=== PATIENT | female | born 1930 | race Caucasian/White ===

== ENCOUNTER 2018-05-23 22:12 | Inpatient (IN) | payer MEDICARE, BC ==
[~2018-05-23] VITALS: Ht 154.9 cm; Wt 58.5 kg
[2018-05-23 23:23] LABS: BASOPHILS % (AUTO) 0.5 % (0.0-2.0); EOSINOPHILS % (AUTO) 0.5 % (0.0-3.0); HEMATOCRIT 50.3 % (37.0-47.0); HEMOGLOBIN 17.2 G/DL (12.0-16.0); LYMPHOCYTES % (AUTO) 7.8 % (20.0-45.0); MEAN CORPUSCULAR VOLUME 85 FL (80-99); MONOCYTES % (AUTO) 7.1 % (1.0-10.0); NEUTROPHILS % (AUTO) 84.1 % (45.0-75.0); PLATELET COUNT 303 K/UL (150-450); RED BLOOD COUNT 5.92 M/UL (4.20-5.40); RED CELL DISTRIBUTION WIDTH 12.9 % (11.6-14.8); WHITE BLOOD COUNT 13.8 K/UL (4.8-10.8)
[2018-05-23 23:24] LABS: APPEARANCE,URINE CLOUDY; BILIRUBIN, URINE NEGATIVE (NEGATIVE); GLUCOSE, URINE (UA) NEGATIVE (NEGATIVE); KETONES,URINE NEGATIVE (NEGATIVE); LEUKOCYTE ESTERASE ,URINE 1+ (NEGATIVE); NITRITE,URINE NEGATIVE (NEGATIVE); PH,URINE 5 (4.5-8.0); PROTEIN,URINE 1+ (NEGATIVE); UROBILINOGEN,URINE NORMAL MG/DL (0.0-1.0)
[2018-05-23 23:26] LABS: COLOR,URINE YELLOW
[2018-05-23 23:37] LABS: ANION GAP 12 mmol/L (5-15); BLOOD UREA NITROGEN 54 mg/dL (7-18); CALCIUM 11.8 MG/DL (8.5-10.1); CARBON DIOXIDE 22 MMOL/L (21-32); CHLORIDE 98 MMOL/L (98-107); CREATININE 2.6 MG/DL (0.55-1.30); POTASSIUM 4.7 MMOL/L (3.5-5.1); SODIUM 132 MMOL/L (136-145)
[2018-05-23 23:42] LABS: ALANINE AMINOTRANSFERASE 39 U/L (12-78); ALBUMIN 3.4 G/DL (3.4-5.0); ALBUMIN/GLOBULIN RATIO 0.8 (1.0-2.7); ALKALINE PHOSPHATASE 94 U/L (46-116); ASPARTATE AMINO TRANSFERASE 43 U/L (15-37); BILIRUBIN,TOTAL 0.5 MG/DL (0.2-1.0); INR 1.1 (0.9-1.1)
[2018-05-24] VITALS (7 sets, daily range): BP systolic 106–141; BP diastolic 59–90
--- NOTE | 2018-05-24 00:31 | Emergency Room Report ---
History of Present Illness General Chief Complaint: Altered Mental Status Source: Family Member, Medical Record, Caregiver Present Illness HPI This is an 87-year-old female with a history of bipolar and hypertension. She was recently discharged from [facility] with L1 compression fracture and UTI. Patient was sent here for altered mental status. Per EMS assisted said that she became unresponsive for about 30 minutes. On arrival she back to baseline. At baseline she is confused and mumbling. I confirm this with the caregiver and her on the phone. Unknown nausea or vomiting. No fever chills but no focal deficit. Allergies: Coded Allergies: No Known Allergies (Unverified , 05/23/18) Patient History Past Medical History: see triage record, old chart reviewed, psych hx Past Surgical History: other Pertinent Family History: none Social History: Denies: smoking Now: No Immunizations: other Reviewed Nursing Documentation: PMH: Agreed; PSxH: Agreed Nursing Documentation-PMH Past Medical History: No History, Except For Hx Hypertension: Yes Hx Gastrointestinal Problems: Yes - GERD; pressure ulcers History Of Psychiatric Problem: Yes - Depression, anxiety, psychosis, bipolar Review of Systems Eye: Denies: eye pain, blurred vision ENT: Denies: ear pain, nose congestion, throat swelling Respiratory: Denies: cough, shortness of breath Cardiovascular: Denies: chest pain, palpitations Gastrointestinal: Denies: abdominal pain, diarrhea, nausea, vomiting Musculoskeletal: Denies: back pain, joint pain Skin: Denies: rash Neurological: Denies: headache, numbness Endocrine: Denies: increased thirst, increased urine Hematologic/Lymphatic: Denies: easy bruising All Other Systems: negative except mentioned in HPI Physical Exam Vital Signs Date Time Temp Pulse Resp B/P (MAP) Pulse Ox O2 Delivery O2 Flow Rate FiO2 05/23/18 22:07 98.0 88 16 140/92 96 Room Air 98.1 vitals normal Sp02 EP Interpretation: reviewed, normal General Appearance: well appearing, no apparent distress, alert Head: normocephalic, atraumatic Eyes: bilateral eye PERRL, bilateral eye EOMI ENT: hearing grossly normal, normal pharynx Neck: full range of motion, supple, no meningismus Respiratory: chest non-tender, lungs clear, normal breath sounds Cardiovascular #1: regular rate, rhythm, no murmur Gastrointestinal: normal bowel sounds, non tender, no mass, no organomegaly, no bruit, non-distended Musculoskeletal: back normal, normal range of motion Neurologic: alert, grossly normal Psychiatric: mood/affect normal Skin: warm/dry Medical Decision Making Diagnostic Impression: Primary Impression: Altered mental status Qualified Codes: R41.82 - Altered mental status, unspecified Additional Impressions: TIA (transient ischemic attack) ARF (acute renal failure) Qualified Codes: N17.9 - Acute kidney failure, unspecified ER Course Patient with an altered mental status. This may be a TIA. No evidence of CVA. No evidence of focal deficit right now. No criteria for TPA. I did give her aspirin here. CT scan is negative. Infection lama improved. No evidence of UTI. She is dehydrated however with the when and creatinine elevated. It was normal on discharge from [facility]. Her troponin is also elevated. She had elevated troponin it was trending downward for discharge paperwork. Because her primary care doctor is Dr. Medel, I contacted Dr. Akbar. He was accepted the patient on his service. Lab Results Impression labs with elevated BUN/creat EKG Diagnostic Results Rate: normal Rhythm: NSR ST Segments: other - NSST changes ASA given to the pt in ED: Yes Rhythm Strip Diag. Results Rhythm Strip Time: 00:30 EP Interpretation: yes Rate: 84 Rhythm: NSR, no PVC's, no ectopy CT/MRI/US Diagnostic Results CT/MRI/US Diagnostic Results : Imaging Test Ordered: CT head Impression no acute process per radiologist Last Vital Signs Date Time Temp Pulse Resp B/P (MAP) Pulse Ox O2 Delivery O2 Flow Rate FiO2 05/23/18 22:07 98.0 88 16 140/92 96 Room Air 98.1 Status: improved Disposition: ADMITTED INPATIENT Condition: Serious Referrals: JUANITO MEDEL (PCP) JERRI ROGERS M.D. May 24, 2018 00:31
[2018-05-24] MEDS ORDERED: LAMOTRIGINE25 M1 PO (01:28)
[2018-05-24] MEDS ORDERED: METOPROLOL SUCC25 MG ORAL (01:28)
[2018-05-24] MEDS ORDERED: ATORVASTATIN CA40 MG ORAL (01:28)
[2018-05-24] MEDS ORDERED: RESTASIS1 EACH BOTH EYES (01:28)
[2018-05-24] MEDS ORDERED: CYMBALTA60 MG ORAL (01:28)
[2018-05-24] MEDS ORDERED: QUETIAPINE FUMA25 MG ORAL (01:28)
[2018-05-24] MEDS ORDERED: AMLODIPINE BESY10 MG ORAL (01:28)
[2018-05-24] MEDS ORDERED: GABAPENTIN100 MG ORAL (01:28)
[2018-05-24] MEDS ORDERED: NORCO 5-325 TA1 EACH ORAL (01:28)
[2018-05-24] MEDS ORDERED: TRIAMTERENE-HC1 EAC5 ORAL (01:28)
[2018-05-24] MEDS ORDERED: SENNA8.6 M2 PO (01:28)
[2018-05-24] MEDS ORDERED: WELLBUTRIN XL150 M3 ORAL (01:28)
[2018-05-24] MEDS ORDERED: BUSPIRONE HCL10 M1 ORAL (01:28)
[2018-05-24] MEDS ORDERED: ACETAMINOPHEN325 M1 ORAL (01:28)
[2018-05-24] MEDS ORDERED: FLONASE ALLERG9.9 ML NS (01:28)
[2018-05-24] MEDS ORDERED: ASPIRIN-LOW81 MG ORAL (01:28)
[2018-05-24] MEDS ORDERED: LEVOTHYROXINE75 MCG ORAL (01:28)
[2018-05-24 07:08] LABS: BASOPHILS % (AUTO) 0.4 % (0.0-2.0); EOSINOPHILS % (AUTO) 0.4 % (0.0-3.0); HEMOGLOBIN 13.5 G/DL (12.0-16.0); LYMPHOCYTES % (AUTO) 11.2 % (20.0-45.0); MEAN CORPUSCULAR VOLUME 85 FL (80-99); MONOCYTES % (AUTO) 7.9 % (1.0-10.0); PLATELET COUNT 238 K/UL (150-450); RED BLOOD COUNT 4.72 M/UL (4.20-5.40); WHITE BLOOD COUNT 10.3 K/UL (4.8-10.8)
[2018-05-24 07:34] LABS: ALANINE AMINOTRANSFERASE 32 U/L (12-78); ALBUMIN 2.6 G/DL (3.4-5.0); ALBUMIN/GLOBULIN RATIO 0.8 (1.0-2.7); ALKALINE PHOSPHATASE 69 U/L (46-116); ANION GAP 10 mmol/L (5-15); ASPARTATE AMINO TRANSFERASE 39 U/L (15-37); BILIRUBIN,TOTAL 0.4 MG/DL (0.2-1.0); CALCIUM 9.5 MG/DL (8.5-10.1); CARBON DIOXIDE 22 MMOL/L (21-32); CHLORIDE 105 MMOL/L (98-107); CHOLESTEROL 118 MG/DL (< 200); CREATININE 2.1 MG/DL (0.55-1.30); HDL CHOLESTEROL 37 MG/DL (40-60); POTASSIUM 4.2 MMOL/L (3.5-5.1); SODIUM 137 MMOL/L (136-145); TRIGLYCERIDES 102 MG/DL (30-150)
[2018-05-24 07:44] LABS: BLOOD UREA NITROGEN 48 mg/dL (7-18)
[2018-05-24] MEDS: BuPROPion XL 150mg tab ORAL SCH ×2 (08:35→17:40)
[2018-05-24] MEDS: DULoxetine 30mg cap ORAL SCH (08:35)
[2018-05-24] MEDS: Metoprolol Succinate XL 25mg tab ORAL SCH (08:37)
[2018-05-24] MEDS: BusPIRone 5mg Tab ORAL SCH ×3 (09:39→17:40)
--- NOTE | 2018-05-24 11:09 | Diagnostic Imaging Report ---
Indication: Altered mental status Technique: spiral acquisitions obtained through the brain. Angled axial and coronal 5 x 5 mm slices were reconstructed. No IV contrast utilized. Radiation dose was minimized using automated exposure control Total dose length product 1305 mGycm. CTDIvol(s) 70 mGy Comparison: none FINDINGS: No acute hemorrhage or edema. No mass effect or midline shift. There is age-related enlargement of the ventricles and extra axial CSF spaces. There is periventricular deep white matter ischemic change. Normal carvajal-white differentiation. There is evidence of prior bilateral cataract surgery. Visualized sinuses are unremarkable. Intact calvarium. IMPRESSION: Chronic and age-related changes. Negative for acute intracranial bleed or mass effect This agrees with the preliminary interpretation provided overnight by [facility] teleradiology service. The CT scanner at [facility] is accredited by the [employer] and the scans are performed using protocols designed to limit radiation exposure to as low as reasonably achievable to attain images of sufficient resolution adequate for diagnostic evaluation
--- NOTE | 2018-05-24 13:05 | History & Physical ---
History and Physical History & Physicial dict TIA dehydration w CLAUDETTE dementia Kirk Akbar MD May 24, 2018 13:05
[2018-05-24] MEDS: Atorvastatin 20mg tab ORAL SCH (21:09)
--- NOTE | 2018-05-24 21:15 | History and Physical Report ---
DATE OF ADMISSION: 05/24/2018 CHIEF COMPLAINT: Confusion. HISTORY OF PRESENT ILLNESS: The patient is an 87-year-old, who was [facility] her [facility] because of about 30 minutes where she was unresponsive. Apparently, she had been responding normally, but stopped talking for a while. When the paramedics brought her, she was responsive once again and seems to be back to her baseline, which is confused. She was admitted for possible TIA and evidence of dehydration was noted on laboratory testing. PAST MEDICAL HISTORY: Hypertension, hyperlipidemia, hypothyroidism, bipolar disorder, depression, and chronic back pain. MEDICATIONS: Eye drops, Cymbalta, Seroquel, Norvasc, aspirin, Lipitor, Wellbutrin, BuSpar, Flonase, Neurontin, Lamictal, Synthroid, metoprolol, Senokot, and Dyazide. ALLERGIES: None. REVIEW OF SYSTEMS: She is a bit confused and cannot really respond. She believes she is able to walk, but apparently physical therapy states that she is not. There is some history of anxiety and psychosis as well as some pressure ulcers and acid reflux. PHYSICAL EXAMINATION: GENERAL: The patient is alert, sitting up in a chair but is confused and disoriented. She is well developed and seems well nourished. VITAL SIGNS: Stable. HEENT: Head is normocephalic. NECK: No jugular venous distention. CHEST: Clear. CARDIAC: Rhythm is regular. ABDOMEN: Soft and nontender. EXTREMITIES: Have no edema. She is able to move all extremities. NEUROLOGIC: Cranial nerves appear to be intact. LABORATORY AND DIAGNOSTIC DATA: Laboratory studies show an elevated hemoglobin of 17.2 and white count was 13,800. This morning, white count is down to 10,300, hemoglobin 13.5, and platelets are normal. The BUN was 54 and creatinine 2.6 on arrival, today it is down with hydration and withholding diuretics. Her baseline showed BUN 21, creatinine of 0.9 four days ago. The troponin is slightly elevated. The albumin is low at 2.6. TSH is normal. Cholesterol is 118. Urinalysis shows no white cells or red cells of significance. A CT of the brain was negative. IMPRESSION: 1. Transient ischemic attack. 2. Dehydration. 3. Dementia. 4. Hypertension. 5. Hyperlipidemia. 6. History of psychosis and bipolar disorder. PLAN: The patient will continue hydration and we will withhold diuretics. There is mild elevation in troponin. Cardiology will be called. She will be evaluated by Physical Therapy. An echocardiogram and carotid duplex will be obtained to evaluate for possible TIA. Kirk Akbar M.D. DR: Lawson JOB#: [id number] CC: Kirk Akbar M.D.; Fax#: [phone] [facility]
[2018-05-25] VITALS (7 sets, daily range): BP systolic 123–152; BP diastolic 61–80
--- NOTE | 2018-05-25 02:00 | Consultation ---
DATE OF CONSULTATION: 05/24/2018 CARDIOLOGY CONSULTATION CONSULTING PHYSICIAN: Vaibhav Faulkner M.D. REQUESTING PHYSICIAN: Kirk Akbar M.D. REASON FOR CONSULTATION: Elevated troponin level. HISTORY OF PRESENT ILLNESS: This 87-year-old female residing at a [facility] facility, was noted to be unresponsive for about 30 minutes. She stopped talking after being noted to be functioning at her baseline. Earlier the patient was found by paramedics, however, to be at baseline upon their arrival. She does have confusion however this is felt to be her baseline. Of concern is abnormal laboratory studies and elevated troponin level as well as possible transient ischemic attack. PAST MEDICAL HISTORY: Hypertension, hyperlipidemia, hypothyroidism, depression, dementia with psychosis, degenerative disk disease with chronic pain, constipation, glaucoma. ALLERGIES: None. FAMILY HISTORY: Noncontributory. SOCIAL HISTORY: No record of smoking, alcohol, or substance abuse. MEDICATIONS: Prior to admission reviewed and reconciled. REVIEW OF SYSTEMS: There is no known history of myocardial infarction, irregular heartbeat, or congestive heart failure. PHYSICAL EXAMINATION: VITAL SIGNS: Blood pressure 138/73, pulse 91, respiratory rate 20, afebrile. HEENT: Temporal wasting. Pale conjunctivae. Oropharynx clear. NECK: Supple. Jugular venous pressure normal. LUNGS: Clear. CARDIAC: Regular rhythm and rate. Normal S1, and S2. There is a fourth heart sound. There is a 1/6 systolic murmur at apex. ABDOMEN: Soft and nontender. EXTREMITIES: No clubbing, cyanosis. No edema. NEUROLOGIC: The patient is responsive. Speech is intact. LABORATORY AND DIAGNOSTIC DATA: Albumin 2.6. CT scan of the brain, no acute process. White count is 18.8, hemoglobin 17.2, BUN 54 and creatinine 2.6. Troponin 0.118. Thyroid function normal. IMPRESSION: 1. Transient ischemic attack. 2. Dehydration. 3. . 4. Hypovolemia. 5. Secondary polycythemia. 6. Elevated troponin level likely due to skeletal muscle breakdown, but cannot exclude acute myocardial ischemia. PLAN: 1. Hydration with IV fluids. 2. Hold diuretics. 3. Titrate antihypertensives. 4. Serial troponins. 5. Antiplatelet therapy. 6. Repeat EKG. 7. Maintain beta-blockade. 8. Check CK and CK-MB levels. Vaibhav Rani Faulkner DR: Dima JOB#: [id number] CC:
[2018-05-25 08:42] LABS: ALANINE AMINOTRANSFERASE 33 U/L (12-78); ALBUMIN 2.7 G/DL (3.4-5.0); ALBUMIN/GLOBULIN RATIO 0.8 (1.0-2.7); ALKALINE PHOSPHATASE 72 U/L (46-116); ANION GAP 10 mmol/L (5-15); ASPARTATE AMINO TRANSFERASE 36 U/L (15-37); BILIRUBIN,TOTAL 0.4 MG/DL (0.2-1.0); BLOOD UREA NITROGEN 43 mg/dL (7-18); CALCIUM 9.7 MG/DL (8.5-10.1); CARBON DIOXIDE 22 MMOL/L (21-32); CHLORIDE 107 MMOL/L (98-107); CHOLESTEROL 111 MG/DL (< 200); CKMB 10.6 NG/ML (0.0-3.6); CREATINE KINASE 83 U/L (26-308); CREATININE 1.6 MG/DL (0.55-1.30); HDL CHOLESTEROL 38 MG/DL (40-60); POTASSIUM 3.7 MMOL/L (3.5-5.1); SODIUM 139 MMOL/L (136-145); TRIGLYCERIDES 93 MG/DL (30-150)
[2018-05-25] MEDS: BusPIRone 5mg Tab ORAL SCH ×3 (09:12→17:19)
[2018-05-25] MEDS: DULoxetine 30mg cap ORAL SCH (09:12)
[2018-05-25] MEDS: Metoprolol Succinate XL 25mg tab ORAL SCH (09:12)
[2018-05-25] MEDS: BuPROPion XL 150mg tab ORAL SCH ×2 (09:13→17:19)
--- NOTE | 2018-05-25 15:17 | Pulmonology Progress Note ---
Assessment/Plan Assessment/Plan 1. Transient ischemic attack. 2. Dehydration. 3. Dementia. 4. Hypertension. 5. Hyperlipidemia. 6. History of psychosis and bipolar disorder. Fu with cares recommendation pt khari montiel in am fu labs watch io bp control Subjective Constitutional: Reports: no symptoms HEENT: Repors: no symptoms Respiratory: Reports: no symptoms Cardiovascular: Reports: no symptoms Gastrointestinal/Abdominal: Reports: no symptoms Allergies: Coded Allergies: No Known Allergies (Unverified , 05/23/18) Subjective no eventa awake no distress tolering po no cp nv or bleeding positive uop Objective Last 24 Hour Vital Signs Date Time Temp Pulse Resp B/P (MAP) Pulse Ox O2 Delivery O2 Flow Rate FiO2 05/25/18 12:00 80 05/25/18 11:49 98.0 84 20 123/70 (87) 95 98.0 05/25/18 11:07 97.9 78 18 132/80 (97) 95 97.9 05/25/18 09:12 102 144/78 05/25/18 09:12 102 144/78 05/25/18 09:00 Room Air 05/25/18 08:00 97.9 102 20 144/78 (100) 92 97.9 05/25/18 08:00 104 05/25/18 04:00 97.0 98 19 152/79 (103) 97 97.0 05/25/18 04:00 88 05/25/18 00:00 97.0 90 20 137/78 (97) 98 97.0 05/25/18 00:00 96 05/24/18 21:00 Room Air 05/24/18 20:00 92 05/24/18 20:00 98.0 92 18 130/59 (82) 94 98.0 05/24/18 16:00 97.2 101 20 138/73 (94) 94 97.2 05/24/18 16:00 91 Intake and Output 05/24/18 05/25/18 19:00 07:00 Intake Total 255 ml 625 ml Output Total 350 ml 1000 ml Balance -95 ml -375 ml Intake Oral 180 ml IV Total 75 ml 625 ml Output Urine Total 350 ml 1000 ml General Appearance: WD/WN Cardiovascular: normal peripheral pulses, regular rhythm Abdomen: soft, non tender, no organomegaly Skin: no rash, no ulcers Neurologic/Psychiatric: no motor/sensory deficits, alert, oriented x 3 Lymphatic: no neck adenopathy Musculoskeletal: normal muscle bulk Laboratory Tests 05/25/18 05:49: Sodium Level 139, Potassium Level 3.7, Chloride Level 107, Carbon Dioxide Level 22, Anion Gap 10, Blood Urea Nitrogen 43H, Creatinine 1.6H, Estimat Glomerular Filtration Rate , Glucose Level 86, Calcium Level 9.7, Total Bilirubin 0.4, Aspartate Amino Transf (AST/SGOT) 36, Alanine Aminotransferase (ALT/SGPT) 33, Alkaline Phosphatase 72, Total Creatine Kinase 83, Creatine Kinase MB 10.6H, Creatine Kinase MB Relative Index 12.7, Troponin I 0.104H, Pro-B-Type Natriuretic Peptide 1264H, Total Protein 5.9L, Albumin 2.7L, Globulin 3.2, Albumin/Globulin Ratio 0.8L, Triglycerides Level 93, Cholesterol Level 111, LDL Cholesterol 58, HDL Cholesterol 38L, Cholesterol/HDL Ratio 2.9L 05/25/18 14:30: Troponin I [Pending] Current Medications Medications (Trade) Dose Ordered Sig/Eusebia Route PRN Reason Start Time Stop Time Status Last Admin Dose Admin Acetaminophen (Tylenol) 650 mg Q6H PRN ORAL MILD PAIN/T>100.5 05/24/18 14:00 06/23/18 13:59 Acetaminophen/ Hydrocodone Bitart ([place] 5/325) 1 tab Q4H PRN ORAL PAIN 4-10 05/24/18 14:00 05/31/18 13:59 Amlodipine Besylate (Norvasc) 10 mg DAILY ORAL 05/24/18 09:00 06/23/18 08:59 05/25/18 09:12 Aspirin (ASA) 325 mg DAILY ORAL 05/24/18 09:00 06/23/18 08:59 05/25/18 09:12 Atorvastatin Calcium (Lipitor) 40 mg BEDTIME ORAL 05/24/18 21:00 06/23/18 20:59 05/24/18 21:09 Bupropion HCl (Wellbutrin XL) 150 mg BID ORAL 05/24/18 09:00 06/23/18 08:59 05/25/18 09:13 Buspirone HCl (Buspar) 10 mg TID ORAL 05/24/18 09:00 06/23/18 08:59 05/25/18 12:44 Duloxetine HCl (Cymbalta) 60 mg DAILY ORAL 05/24/18 09:00 06/23/18 08:59 05/25/18 09:12 Gabapentin (Neurontin) 100 mg THREE TIMES A DAY ORAL 05/24/18 09:00 06/23/18 08:59 05/25/18 12:44 Lamotrigine (LaMICtal) 25 mg BID ORAL 05/24/18 09:00 06/23/18 08:59 05/25/18 09:12 Levothyroxine Sodium (Synthroid) 75 mcg ACBREAKFAST ORAL 05/24/18 06:30 06/23/18 06:29 05/25/18 06:20 Metoprolol Succinate (Toprol XL) 25 mg DAILY ORAL 05/24/18 09:00 06/23/18 08:59 05/25/18 09:12 Quetiapine Fumarate (SEROquel) 25 mg PRN PRN ORAL For Anxiety 05/24/18 11:30 06/23/18 08:59 Sodium Chloride 1,000 ml @ 75 mls/hr [id number] IV 05/24/18 04:00 06/23/18 03:59 05/24/18 17:37 Orin Zamora DO May 25, 2018 15:17
[2018-05-25] MEDS ORDERED: Lexiscan 0.4mg/5ml syringe IV PRN (18:00)
[2018-05-25 19:14] LABS: APPEARANCE,URINE SLIGHTLY CLOUDY; BILIRUBIN, URINE NEGATIVE (NEGATIVE); COLOR,URINE PALE YELLOW; GLUCOSE, URINE (UA) NEGATIVE (NEGATIVE); KETONES,URINE NEGATIVE (NEGATIVE); LEUKOCYTE ESTERASE ,URINE 1+ (NEGATIVE); NITRITE,URINE NEGATIVE (NEGATIVE); PH,URINE 5 (4.5-8.0); PROTEIN,URINE 2+ (NEGATIVE); UROBILINOGEN,URINE NORMAL MG/DL (0.0-1.0)
--- NOTE | 2018-05-25 19:30 | Progress Note ---
DATE: 05/25/2018 CARDIOLOGY PROGRESS NOTE SUBJECTIVE: The patient denies chest pain or shortness of breath. She does feel weak. OBJECTIVE: VITAL SIGNS: Blood pressure 127/72, pulse 84, respirations 18 and afebrile. NECK: Supple. LUNGS: Clear. CARDIAC: Regular rhythm and rate. Normal S1 and S2 with a fourth heart sound. ABDOMEN: Soft. EXTREMITIES: No edema. LABORATORY AND DIAGNOSTIC DATA: White count 10 and hemoglobin 13.5. Troponin decreasing from 0.131 to 0.092. BUN 43 and creatinine 1.6. CK total is 83 and MB is 10.6. Index is 12.7. Pro-natriuretic peptide 1264. IMPRESSION: 1. Acute myocardial ischemia and possible non-ST elevation infarction. 2. Acute on chronic diastolic congestive heart failure. 3. Acute on chronic renal failure. 4. Hypovolemia and dehydration. 5. Moderate protein-calorie malnutrition. PLAN: 1. Continue hydration. 2. Discontinue Bai catheter. 3. Titrate antihypertensives and maintain beta-blockade. 4. Anti-platelet therapy. 5. Noninvasive assessment of coronary flow reserve. 6. Discontinue Bai catheter. Vaibhav Faulkner M.D. DR: ABIMAEL JOB#: [id number] CC:
[2018-05-25] MEDS: Atorvastatin 20mg tab ORAL SCH (21:05)
[2018-05-26] VITALS: BP 123/64
[2018-05-26 04:00] VITALS: BP 130/70
[2018-05-26 07:48] LABS: BASOPHILS % (AUTO) 0.6 % (0.0-2.0); HEMATOCRIT 38.6 % (37.0-47.0); HEMOGLOBIN 13.1 G/DL (12.0-16.0); LYMPHOCYTES % (AUTO) 12.5 % (20.0-45.0); MEAN CORPUSCULAR VOLUME 85 FL (80-99); NEUTROPHILS % (AUTO) 74.9 % (45.0-75.0); PLATELET COUNT 232 K/UL (150-450); RED BLOOD COUNT 4.53 M/UL (4.20-5.40); RED CELL DISTRIBUTION WIDTH 13.4 % (11.6-14.8); WHITE BLOOD COUNT 7.2 K/UL (4.8-10.8)
[2018-05-26 08:00] VITALS: BP 158/80
[2018-05-26 08:04] LABS: ANION GAP 8 mmol/L (5-15); BLOOD UREA NITROGEN 24 mg/dL (7-18); CALCIUM 9.2 MG/DL (8.5-10.1); CARBON DIOXIDE 28 MMOL/L (21-32); CHLORIDE 106 MMOL/L (98-107); CREATININE 1.1 MG/DL (0.55-1.30); POTASSIUM 3.4 MMOL/L (3.5-5.1); SODIUM 142 MMOL/L (136-145)
[2018-05-26] MEDS: BuPROPion XL 150mg tab ORAL SCH ×2 (09:00→17:36)
[2018-05-26] MEDS: DULoxetine 30mg cap ORAL SCH (09:00)
[2018-05-26] MEDS: BusPIRone 5mg Tab ORAL SCH ×3 (09:00→17:42)
[2018-05-26] MEDS: Metoprolol Succinate XL 25mg tab ORAL SCH (09:05)
--- NOTE | 2018-05-26 09:58 | Pulmonology Progress Note ---
Assessment/Plan Assessment/Plan 1. Transient ischemic attack. 2. Dehydration. 3. Dementia. 4. Hypertension. 5. Hyperlipidemia. 6. History of psychosis and bipolar disorder. 7. ? UTI Fu with cards recommendation pt lucia dc in am will start bactrim with persistent LE positive UA and increased WBC in the urine as well fu labs watch io bp control dc planning back to [facility], CM unavailable at this time and unclear if bed is available.e Subjective Constitutional: Reports: no symptoms HEENT: Repors: no symptoms Respiratory: Reports: no symptoms Cardiovascular: Reports: no symptoms Gastrointestinal/Abdominal: Reports: no symptoms Allergies: Coded Allergies: No Known Allergies (Unverified , 05/23/18) Subjective no eventa awake no distress tolering po getting oob to commode no cp nv or bleeding positive uop Objective Last 24 Hour Vital Signs Date Time Temp Pulse Resp B/P (MAP) Pulse Ox O2 Delivery O2 Flow Rate FiO2 05/26/18 09:10 84 158/80 05/26/18 09:05 84 158/80 05/26/18 08:00 97.5 84 21 158/80 (106) 95 97.5 05/26/18 04:00 80 05/26/18 04:00 98.1 82 20 130/70 (90) 96 98.1 05/26/18 00:00 97.7 78 18 123/64 (83) 95 97.7 05/26/18 00:00 80 05/25/18 21:00 Room Air 05/25/18 20:00 97.2 85 16 136/61 (86) 96 97.2 05/25/18 20:00 84 05/25/18 16:00 87 05/25/18 16:00 97.3 84 18 127/73 (91) 95 97.3 05/25/18 12:00 80 05/25/18 11:49 98.0 84 20 123/70 (87) 95 98.0 05/25/18 11:07 97.9 78 18 132/80 (97) 95 97.9 Intake and Output 05/25/18 05/26/18 19:00 07:00 Intake Total 1260 ml Output Total 600 ml Balance 660 ml Intake Oral 360 ml IV Total 900 ml Output Urine Total 600 ml # Voids 2 # Bowel Movements 2 2 General Appearance: WD/WN Respiratory/Chest: lungs clear, normal breath sounds Cardiovascular: normal rate, regular rhythm Abdomen: soft, non tender, no organomegaly Extremities: no cyanosis 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 Complete 05/24/18 01:10 Rectum - Final NO CARBAPENEM-RESISTANT ENTEROBACTERI... Complete 05/24/18 01:10 Rectum VRE Culture - Final NO VANCOMYCIN RESISTANT ENTEROCOCCUS ... Complete Laboratory Tests 05/25/18 14:30: Troponin I 0.092H 05/25/18 18:55: Urine Color Pale yellow, Urine Appearance Slightly cloudy, Urine pH 5, Urine Specific [place] 1.015, Urine Protein 2+H, Urine Glucose (UA) Negative, Urine Ketones Negative, Urine Blood 5+H, Urine Nitrite Negative, Urine Bilirubin Negative, Urine Urobilinogen Normal, Urine Leukocyte Esterase 1+H, Urine RBC 40- 60H, Urine WBC 5-10H, Urine Squamous Epithelial Cells ModerateH, Urine Bacteria Few, Urine Yeast ModerateH 05/26/18 06:30: Troponin I 0.067H, White Blood Count 7.2, Red Blood Count 4.53, Hemoglobin 13.1 , Hematocrit 38.6, Mean Corpuscular Volume 85, Mean Corpuscular Hemoglobin 28.9 , Mean Corpuscular Hemoglobin Concent 33.9, Red Cell Distribution Width 13.4, Platelet Count 232, Mean Platelet Volume 5.4L, Neutrophils (%) (Auto) 74.9, Lymphocytes (%) (Auto) 12.5L, Monocytes (%) (Auto) 9.0, Eosinophils (%) (Auto) 3.0, Basophils (%) (Auto) 0.6, Sodium Level 142, Potassium Level 3.4L, Chloride Level 106, Carbon Dioxide Level 28, Anion Gap 8, Blood Urea Nitrogen 24H, Creatinine 1.1, Estimat Glomerular Filtration Rate , Glucose Level 83, Calcium Level 9.2 Current Medications Medications (Trade) Dose Ordered Sig/Eusebia Route PRN Reason Start Time Stop Time Status Last Admin Dose Admin Acetaminophen (Tylenol) 650 mg Q6H PRN ORAL MILD PAIN/T>100.5 9/14/18 14:00 06/23/18 13:59 Acetaminophen/ Hydrocodone Bitart ([place] 5/325) 1 tab Q4H PRN ORAL PAIN 4-10 05/24/18 14:00 05/31/18 13:59 Amlodipine Besylate (Norvasc) 10 mg DAILY ORAL 05/24/18 09:00 06/23/18 08:59 05/26/18 09:10 Aspirin (ASA) 325 mg DAILY ORAL 05/24/18 09:00 06/23/18 08:59 05/26/18 09:06 Atorvastatin Calcium (Lipitor) 40 mg BEDTIME ORAL 05/24/18 21:00 06/23/18 20:59 05/25/18 21:05 Bupropion HCl (Wellbutrin XL) 150 mg BID ORAL 05/24/18 09:00 06/23/18 08:59 05/25/18 17:19 Buspirone HCl (Buspar) 10 mg TID ORAL 05/24/18 09:00 06/23/18 08:59 05/25/18 17:19 Duloxetine HCl (Cymbalta) 60 mg DAILY ORAL 05/24/18 09:00 06/23/18 08:59 05/25/18 09:12 Gabapentin (Neurontin) 100 mg THREE TIMES A DAY ORAL 05/24/18 09:00 06/23/18 08:59 05/26/18 09:05 Lamotrigine (LaMICtal) 25 mg BID ORAL 05/24/18 09:00 06/23/18 08:59 05/26/18 09:06 Levothyroxine Sodium (Synthroid) 75 mcg ACBREAKFAST ORAL 05/24/18 06:30 06/23/18 06:29 05/26/18 06:09 Metoprolol Succinate (Toprol XL) 25 mg DAILY ORAL 05/24/18 09:00 06/23/18 08:59 05/26/18 09:05 Quetiapine Fumarate (SEROquel) 25 mg PRN PRN ORAL For Anxiety 05/24/18 11:30 06/23/18 08:59 Regadenoson (Lexiscan) 0.4 mg ONCE PRN IV STRESS TEST 05/25/18 18:00 05/29/18 23:59 Sodium Chloride 1,000 ml @ 75 mls/hr [id number] IV 05/24/18 04:00 06/23/18 03:59 05/26/18 09:33 Orin Zamora DO May 26, 2018 09:58
[2018-05-26] MEDS: Bactrim-DS 1 tab ORAL SCH (10:30)
[2018-05-26 12:00] VITALS: BP 150/80
--- NOTE | 2018-05-26 15:50 | Cardiology Report ---
APPROVED REPORT EKG Measurement Heart [id number] CT 154P58 [id number] Sinus tachycardia with PAC's Abnormal ECG
[2018-05-26 16:00] VITALS: BP 136/86
--- NOTE | 2018-05-26 16:11 | Cardiology Report ---
APPROVED REPORT EKG Measurement Heart [id number] HI 160P17 [id number] Normal sinus rhythm Abnormal ECG
[2018-05-26 20:00] VITALS: BP 148/79
[2018-05-26] MEDS: Atorvastatin 20mg tab ORAL SCH (20:05)
--- NOTE | 2018-05-26 22:45 | Progress Note ---
DATE: 05/26/2018 CARDIOLOGY PROGRESS NOTE SUBJECTIVE: The patient without any chest pain. No shortness of breath. Monitored rhythm, sinus. OBJECTIVE: VITAL SIGNS: Blood pressure 158/80, heart rate 84, respiratory rate 21, earlier blood pressure 123/64. LUNGS: Good breath sounds. No wheezing. HEART: Regular rhythm and rate. Normal S1, S2 with a fourth heart sound. ABDOMEN: Soft, nontender. EXTREMITIES: No edema. LABORATORY DATA: White count 7.2, hemoglobin 13.1. Troponin down to 0.067. BUN 24, creatinine 1.1, potassium 3.4. IMPRESSION: 1. Acute myocardial infarction, [id number] type. 2. Acute on chronic diastolic congestive heart failure, clinically compensated. 3. Moderate protein-calorie malnutrition. 4. Acute renal failure, resolved. 5. Dehydration, hypovolemia, improved. 6. Hypokalemia. 7. Hypertensive heart disease with improved blood pressure control overall. PLAN: 1. Potassium replacement. 2. Discontinue IV fluids. 3. Continue anti-platelet therapy, statin drug, and beta-blockade. 4. Myocardial perfusion scan for assessment of coronary flow reserve. Vaibhav Faulkner M.D. DR: Jen JOB#: [id number] CC:
[2018-05-27] VITALS: BP 141/69
[2018-05-27 04:00] VITALS: BP 150/96
[2018-05-27 07:18] LABS: BASOPHILS % (AUTO) 0.8 % (0.0-2.0); EOSINOPHILS % (AUTO) 2.3 % (0.0-3.0); HEMATOCRIT 40.1 % (37.0-47.0); HEMOGLOBIN 13.9 G/DL (12.0-16.0); LYMPHOCYTES % (AUTO) 14.3 % (20.0-45.0); MEAN CORPUSCULAR VOLUME 85 FL (80-99); NEUTROPHILS % (AUTO) 71.6 % (45.0-75.0); PLATELET COUNT 259 K/UL (150-450); RED BLOOD COUNT 4.75 M/UL (4.20-5.40); RED CELL DISTRIBUTION WIDTH 13.4 % (11.6-14.8); WHITE BLOOD COUNT 7.9 K/UL (4.8-10.8)
[2018-05-27 08:00] VITALS: BP 136/75
[2018-05-27 08:01] LABS: ALANINE AMINOTRANSFERASE 37 U/L (12-78); ALBUMIN 2.7 G/DL (3.4-5.0); ALKALINE PHOSPHATASE 81 U/L (46-116); ANION GAP 11 mmol/L (5-15); ASPARTATE AMINO TRANSFERASE 31 U/L (15-37); BILIRUBIN,TOTAL 0.4 MG/DL (0.2-1.0); BLOOD UREA NITROGEN 16 mg/dL (7-18); CALCIUM 8.6 MG/DL (8.5-10.1); CARBON DIOXIDE 25 MMOL/L (21-32); CHLORIDE 107 MMOL/L (98-107); CREATININE 0.9 MG/DL (0.55-1.30); POTASSIUM 3.6 MMOL/L (3.5-5.1); SODIUM 143 MMOL/L (136-145)
[2018-05-27] MEDS: Metoprolol Succinate XL 25mg tab ORAL SCH (08:56)
[2018-05-27] MEDS: BuPROPion XL 150mg tab ORAL SCH ×2 (08:56→17:32)
[2018-05-27] MEDS: DULoxetine 30mg cap ORAL SCH (08:56)
[2018-05-27] MEDS: Bactrim-DS 1 tab ORAL SCH (08:56)
[2018-05-27] MEDS ORDERED: Fleet's Enema 133ml RECTAL SCH (10:00)
[2018-05-27] MEDS: BusPIRone 5mg Tab ORAL SCH ×3 (10:40→17:31)
--- NOTE | 2018-05-27 11:22 | Cardiology Report ---
APPROVED REPORT EXAM: Two-dimensional and M-mode echocardiogram with Doppler and color Doppler. INDICATION Altered LOC M-Mode DIMENSIONS Left Atrium (MM)2.6 (1.6-4.0cm) Aortic Root2.6 (2.0-3.7cm) Aortic Cusp Exc.1.9 (1.5-2.0cm) Technically difficult and limited study due to patients breathing. Study quality precludes accurate assessment of regional wall motion. M-mode measurements of left ventricle not obtainable. Normal left ventricular chamber size, systolic function and wall motion. Left ventricular ejection fraction estimated to be 60 %. Mild left ventricular hypertrophy. Anterior Echo-free space, may be due to pericardial fat or effusion. All other cardiac chamber sizes are within normal limits. Focal aortic valve sclerosis with adequate cusp excursion. Thickened mitral valve leaflets with normal excursion. Mild mitral annulus and aortic root calcification. Pulmonic valve not visualized. Normal tricuspid valve structure. IVC is normal in size with physiological collapse. A color flow and spectral Doppler study was performed and revealed: Mild to moderate aortic insufficiency. Mild mitral regurgitation. Mitral diastolic velocities suggest mild left ventricular diastolic dysfunction (Grade I). Trace tricuspid regurgitation. Tricuspid systolic velocities suggests peak right ventricular systolic pressure of 18 mmHg.
[2018-05-27 12:00] VITALS: BP 129/55
[2018-05-27 16:00] VITALS: BP 138/74
--- NOTE | 2018-05-27 16:44 | Pulmonology Progress Note ---
Assessment/Plan Assessment/Plan 1. Acute myocardial infarction, [id number] type. 2. Acute on chronic diastolic congestive heart failure, compensated. 3. Moderate protein-calorie malnutrition. 4. Acute renal failure, resolved. 5. Dehydration, hypovolemia, improved. 6. Hypokalemia. 7. Hypertensive heart disease with improved blood pressure control 8. Constipation Fleet enema stress test dc planning Subjective Gastrointestinal/Abdominal: Reports: constipation Allergies: Coded Allergies: No Known Allergies (Unverified , 05/23/18) Objective Last 24 Hour Vital Signs Date Time Temp Pulse Resp B/P (MAP) Pulse Ox O2 Delivery O2 Flow Rate FiO2 05/27/18 16:00 97.9 78 18 138/74 (95) 96 97.9 05/27/18 12:00 84 05/27/18 12:00 98.1 81 18 129/55 (79) 95 98.1 05/27/18 09:00 Room Air 05/27/18 08:56 80 136/75 05/27/18 08:56 80 136/75 05/27/18 08:00 97.7 80 18 136/75 (95) 96 97.7 05/27/18 08:00 88 05/27/18 04:00 97.5 88 19 150/96 (114) 92 97.5 05/27/18 04:00 98 05/27/18 00:00 97.5 89 19 141/69 (93) 94 97.5 05/27/18 00:00 90 05/26/18 21:00 Room Air 05/26/18 20:00 103 05/26/18 20:00 97.7 77 19 148/79 (102) 96 97.7 Intake and Output 05/26/18 05/27/18 19:00 07:00 Intake Total 1209 ml 1105 ml Balance 1209 ml 1105 ml Intake Oral 500 ml 240 ml IV Total 709 ml 865 ml # Voids 4 5 # Bowel Movements 2 General Appearance: no acute distress Respiratory/Chest: lungs clear Cardiovascular: normal rate Microbiology Date/Time Source Procedure Growth Status 05/25/18 18:55 Urine,Clean Catch Urine Culture - Preliminary NO GROWTH AFTER 24 HOURS Resulted Laboratory Tests 05/27/18 06:20: White Blood Count 7.9, Red Blood Count 4.75, Hemoglobin 13.9, Hematocrit 40.1, Mean Corpuscular Volume 85, Mean Corpuscular Hemoglobin 29.3, Mean Corpuscular Hemoglobin Concent 34.7, Red Cell Distribution Width 13.4, Platelet Count 259, Mean Platelet Volume 5.3L, Neutrophils (%) (Auto) 71.6, Lymphocytes (%) (Auto) 14.3L, Monocytes (%) (Auto) 11.0H, Eosinophils (%) (Auto) 2.3, Basophils (%) ( Auto) 0.8, Sodium Level 143, Potassium Level 3.6, Chloride Level 107, Carbon Dioxide Level 25, Anion Gap 11, Blood Urea Nitrogen 16, Creatinine 0.9, Estimat Glomerular Filtration Rate , Glucose Level 85, Calcium Level 8.6, Magnesium Level 1.1L, Total Bilirubin 0.4, Aspartate Amino Transf (AST/SGOT) 31, Alanine Aminotransferase (ALT/SGPT) 37, Alkaline Phosphatase 81, Troponin I 0.057H, Pro- B-Type Natriuretic Peptide 1179H, Total Protein 5.5L, Albumin 2.7L, Globulin 2.8 , Albumin/Globulin Ratio 1.0 Current Medications Medications (Trade) Dose Ordered Sig/Eusebia Route PRN Reason Start Time Stop Time Status Last Admin Dose Admin Acetaminophen (Tylenol) 650 mg Q6H PRN ORAL MILD PAIN/T>100.5 05/24/18 14:00 06/23/18 13:59 Acetaminophen/ Hydrocodone Bitart ([place] 5/325) 1 tab Q4H PRN ORAL PAIN 4-10 05/24/18 14:00 05/31/18 13:59 Amlodipine Besylate (Norvasc) 10 mg DAILY ORAL 05/24/18 09:00 06/23/18 08:59 05/27/18 08:56 Aspirin (ASA) 325 mg DAILY ORAL 05/24/18 09:00 06/23/18 08:59 05/27/18 08:56 Atorvastatin Calcium (Lipitor) 40 mg BEDTIME ORAL 05/24/18 21:00 06/23/18 20:59 05/26/18 20:05 Bupropion HCl (Wellbutrin XL) 150 mg BID ORAL 05/24/18 09:00 06/23/18 08:59 05/27/18 08:56 Buspirone HCl (Buspar) 10 mg TID ORAL 05/24/18 09:00 06/23/18 08:59 05/27/18 14:00 Duloxetine HCl (Cymbalta) 60 mg DAILY ORAL 05/24/18 09:00 06/23/18 08:59 05/27/18 08:56 Gabapentin (Neurontin) 100 mg THREE TIMES A DAY ORAL 05/24/18 09:00 06/23/18 08:59 05/27/18 14:00 Lamotrigine (LaMICtal) 25 mg BID ORAL 05/24/18 09:00 06/23/18 08:59 05/27/18 08:56 Levothyroxine Sodium (Synthroid) 75 mcg ACBREAKFAST ORAL 05/24/18 06:30 06/23/18 06:29 05/27/18 06:56 Metoprolol Succinate (Toprol XL) 25 mg DAILY ORAL 05/24/18 09:00 06/23/18 08:59 05/27/18 08:56 Quetiapine Fumarate (SEROquel) 25 mg PRN PRN ORAL For Anxiety 05/24/18 11:30 06/23/18 08:59 Regadenoson (Lexiscan) 0.4 mg ONCE PRN IV STRESS TEST 05/25/18 18:00 05/29/18 23:59 Sodium Chloride 1,000 ml @ 75 mls/hr [id number] IV 05/26/18 23:00 06/25/18 22:59 05/27/18 12:19 Trimethoprim/ Sulfamethoxazole (Bactrim-DS) 1 tab DAILY ORAL 05/26/18 10:15 06/02/18 10:14 05/27/18 08:56 Kirk Akbar MD May 27, 2018 16:44
[2018-05-27] MEDS: Norco 5mg/325mg tab ORAL PRN (17:31)
[2018-05-27 20:00] VITALS: BP 140/82
[2018-05-27] MEDS: Atorvastatin 20mg tab ORAL SCH (20:21)
--- NOTE | 2018-05-27 22:15 | Progress Note ---
DATE: 05/27/2018 CARDIOLOGY PROGRESS NOTE SUBJECTIVE: The patient has no new complaints of chest pain or shortness of breath. She does feel constipated. Fleet enema was ordered earlier. OBJECTIVE: VITAL SIGNS: Blood pressure 138/74, pulse 78, and respirations 18. Afebrile. LUNGS: Clear. CARDIAC: Regular. Normal S1, S2 with a fourth heart sound. ABDOMEN: Soft and nontender. EXTREMITIES: No edema. LABORATORY DATA: Cultures of blood and urine are negative. White count is 7.9 and hemoglobin 13.9. Troponin down to 0.057. Albumin 2.7. Pro-natriuretic peptide is now 1179, relatively unchanged. Potassium 3.6, BUN 16, creatinine 0.9, and magnesium is only 1.1. IMPRESSION: 1. Acute [id number] myocardial infarction. 2. Severe hypomagnesemia. 3. Hypokalemia. 4. Acute on chronic diastolic congestive heart failure, clinically compensated. 5. Acute renal failure, resolved. 6. Dehydration and hypovolemia, recovered. PLAN: 1. IV magnesium replacement 8 grams total. 2. Oral potassium. 3. Myocardial perfusion scan with Lexiscan stress scheduled for today. 4. Continue current antianginal regimen and anti-platelet therapy for now. 5. Final recommendations to follow once myocardial perfusion scan completed and results available. Vaibhav Faulkner M.D. DR: SCOT JOB#: [id number] CC:
[2018-05-28] VITALS: BP 143/80
--- NOTE | 2018-05-28 01:33 | Diagnostic Imaging Report ---
APPROVED REPORT CPT Code: 46607 Vascular Symptoms Comments: Altered LOC CAROTID (BILATERAL) - Imaging reveals no significant plaque within the right and left extracranial carotid arteries. The Doppler spectral flow analysis is within normal limits throughout the extracranial carotid arteries bilaterally. VERTEBRAL- The vertebral arteries are within normal limits.
[2018-05-28 04:00] VITALS: BP 140/77
[2018-05-28 08:00] VITALS: BP 132/73
--- NOTE | 2018-05-28 08:27 | Diagnostic Imaging Report ---
Indications: Chest pain Technique: Single day single isotope protocol utilized. Initially, resting images obtained using IV administration 10.8 millicuries 99M technetium Myoview. Subsequently, patient underwent lexiscan stress testing. See cardiology report for details. During Lexiscan infusion, IV administration 30.4 mCi 99 M technetium Myoview. SPECT and planar images obtained. SPECT images gated to 8 phases of the cardiac cycle were also obtained, and reformatted into cine images for evaluation of ejection fraction. Comparison: none Findings: Presence or absence of symptoms during infusion is not reported on the cardiology report. Per cardiology report, resting EKG demonstrates normal sinus rhythm. Presence or absence of ST changes during infusion is not described on the cardiology report. Imaging demonstrates no fixed nor reversible post stress perfusion defects. Normal cardiac chamber size. Calculated post stress ejection fraction 71%. No focal wall motion abnormality demonstrated Impression: Nonischemic clinical response to pharmacologic stress, per cardiology report Nonischemic electrocardiographic response to pharmacologic stress, per cardiology report No imaging findings to suggest ischemia, at level of stress achieved. Calculated post stress ejection fraction greater than 70%
[2018-05-28] MEDS: Metoprolol Succinate XL 25mg tab ORAL SCH (09:09)
[2018-05-28] MEDS: BuPROPion XL 150mg tab ORAL SCH (09:09)
[2018-05-28] MEDS: Bactrim-DS 1 tab ORAL SCH (09:09)
[2018-05-28] MEDS: DULoxetine 30mg cap ORAL SCH (09:09)
[2018-05-28] MEDS: BusPIRone 5mg Tab ORAL SCH (09:18)
[2018-05-28 12:00] VITALS: BP 128/68
[2018-05-28] MEDS ORDERED: BusPIRone 10mg Tab ORAL SCH (13:00)
[2018-05-28] MEDS: Norco 5mg/325mg tab ORAL PRN (13:40)
[2018-05-28] MEDS ORDERED: Tubing IV Secondary IV ONE (15:59)
--- NOTE | 2018-05-28 22:30 | Progress Note ---
DATE: 05/28/2018 CARDIOLOGY PROGRESS NOTE SUBJECTIVE: The patient does not have any chest pain or shortness of breath. She had a myocardial perfusion scan with Lexiscan stress yesterday. The results were notable for normal ejection fraction with no ischemia. The patient was given IV magnesium today yesterday for low levels of 1.1. OBJECTIVE: VITAL SIGNS: Blood pressure 132/73, pulse 90, respiratory rate 18 and afebrile. LUNGS: Clear. CARDIAC: Regular. Normal S1 and S2. ABDOMEN: Soft. EXTREMITIES: No edema. IMPRESSION: 1. Non-ST elevation myocardial infarction with no signs of reversible ischemia on myocardial perfusion scan. 2. Hypomagnesemia, status post replacement therapy. 3. Acute renal failure, dehydration and hypovolemia resolved with IV fluids. 4. Acute on chronic diastolic congestive heart failure clinically compensated. 5. Hypokalemia, corrected. 6. Hypertension, controlled. PLAN: 1. Outpatient followup at this time. 2. Current cardiovascular regimen to be continued. 3. Avoid diuretics. 4. Maintain adequate oral intake. 5. Continue anti-platelet and anti-lipid drugs long-term. Vaibhav Faulkner M.D. DR: ABIMAEL JOB#: [id number] CC:
[2018-05-29] MEDS ORDERED: Magnesium Oxide 400mg tab ORAL SCH (09:00)
--- NOTE | 2018-05-30 11:57 | Discharge Summary ---
Discharge Summary Discharge Summary _ DATE OF ADMISSION: 05/24/2018 DATE OF DISCHARGE: 05/28/2018 REASON FOR ADMISSION: 87 years old female with past medical history of hypertension, hyperlipidemia, hypothyroidism, bipolar disorder, depression, chronic back pain, was transferred from the nursing home facility due to episode of unresponsiveness for about 30 minutes. When gliding pilot instructor brought patient to emergency department, patient was back to baseline , confused but verbal. Laboratory workup revealed BUN 54, creatinine 2.6 . WBC 13.[address] of the head revealed no acute intracranial pathology. EKG revealed normal sinus rhythm, no acute ischemic changes. Patient admitted with diagnoses of TIA , dehydration with hypovolemia, elevated troponin , r/o ACS, hypertension hyperlipidemia, history of psychosis and bipolar disorder. CONSULTANTS: court clerk Dr. Faulkner [facility] COURSE: Patient admitted to telemetry floor. Patient started on IV hydration. Diuretics were on hold. Serial troponin still revealed mild elevation in troponin, trending down. Repeated EKG revealed no acute ischemic changes. Carotid duplex was essentially negative. Echocardiogram revealed preserved ejection fraction of 60%, right ventricular systolic pressure of 18 and [id number] aortic insufficiency. Antihypertensive regimen titrated to keep blood pressure under control. and was managed with calcium channel taryn and beta taryn. Antiplatelet therapy with aspirin was continued. Beta blockage was continued. Pain management addressed as needed. Statin was continued. Lipid w panel was stable. Stress test was nonischemic with no imaging findings to suggest ischemia, at level of stress achieved. Calculated ejection fraction above 70%. According to court clerk, patient had non-ST elevated myocardial infarction with no signs of reversible ischemia on myocardial perfusion scan. TSH was within normal limits. Current dose of the levothyroxine was continued. Renal parameters and electrolytes were closely monitored. Electrolytes corrected as needed (potassium and magnesium). Acute renal failure was likely due to dehydration with hypovolemia and resolved. Prior to discharge BUN 16 and creatinine 0.9. Urine culture was negative. Psychiatric medication regimen from nursing home facility continued. Supportive care provided. Bowel regimen instituted. Dietary supplements implemented in plan of care . Patient clinically stabilized and was ready for discharge back to nursing home facility FINAL DIAGNOSES: Transplant ischemic attack Non-ST elevated myocardial infarction with no signs of reversible ischemia or myocardial perfusion on myocardial perfusion scan. Acute renal failure due to dehydration resolved Dehydration with hypovolemia Acute on chronic diastolic congestive heart failure clinically compensated Hypertensive heart disease with improved blood pressure control Electrolyte abnormality hypomagnesemia hypokalemia Hyperlipidemia Moderate protein calorie malnutrition Dementia Hypothyroidism DISCHARGE MEDICATIONS: See Medication Reconciliation list. DISCHARGE INSTRUCTIONS: Patient was discharged to the nursing home facility. Follow up with medical doctor at the facility. I have been assigned to dictate discharge summary for this account. I was not involved in the patient's management. Genie Bazzi NP May 30, 2018 11:57
== END 2018-05-28 16:00 | DRG 280 ==
LOC: EDBD 22:12 → EMR 22:46 → 2E 05-24 00:21 → EDBEDREQ 05-24 01:18
DX: I21.4 Non-ST elevation (NSTEMI) myocardial infarction (principal); I50.33 Acute on chronic diastolic (congestive) heart failure; G45.9 Transient cerebral ischemic attack, unspecified; N17.9 Acute kidney failure, unspecified; E44.0 Moderate protein-calorie malnutrition; E86.0 Dehydration; I10 Essential (primary) hypertension; E78.5 Hyperlipidemia, unspecified; F31.9 Bipolar disorder, unspecified; F29 Unspecified psychosis not due to a substance or known physiological condition; G89.29 Other chronic pain; E86.1 Hypovolemia; I11.0 Hypertensive heart disease with heart failure; E83.42 Hypomagnesemia; E87.6 Hypokalemia; E03.9 Hypothyroidism, unspecified; F03.90 Unspecified dementia, unspecified severity, without behavioral disturbance, psychotic disturbance, mood disturbance, and anxiety
CPT/HCPCS: 36415; 51702; 70450; 78452; 80048; 80053; 80061; 81001; 81003; 82550; 82553; 83735; 83880; 84443; 84484; 85025; 85610; 85730; 87081; 87086; 93005; 93017; 93306; 93880; 96360; 99285; J2785; J8499